=== PATIENT | male | born 1950 ===

== ENCOUNTER 2020-01-28 08:38 | Inpatient (IN) | payer MEDICARE ==
[~2020-01-28] VITALS: Ht 175.3 cm; Wt 91.4 kg
[~2020-01-28 08:38] MED LIST: ALPR.25; Aspirin EC81 MG PO; CELE200; HYDACE10B; METO100ER; MULVITA PO; OLME20; OMEP20ER
[2020-01-28 09:21] LABS: BASOPHILS ABSOLUTE AUTO 0.04 K/mm3 (0.00-0.23); BASOPHILS PERCENT AUTO 0 % (0-2); EOSINOPHILS ABSOLUTE AUTO 0.13 K/mm3 (0.00-0.68); EOSINOPHILS PERCENT AUTO 1 % (0-6); Hematocrit 44.6 % (37.0-53.0); Hemoglobin 15.3 g/dL (13.5-17.5); IMMATURE GRAN ABSOLUTE AUTO 0.03 K/mm3 (0.00-0.10); IMMATURE GRAN PERCENT AUTO 0 % (0-1); LYMPHOCYTES ABSOLUTE AUTO 1.81 K/mm3 (0.84-5.20); LYMPHOCYTES PERCENT AUTO 14 % (21-46); MONOCYTES PERCENT AUTO 5 % (4-13); Mean Corpuscular HGB 32.3 pg (26.0-34.0); Mean Corpuscular HGB Conc 34.3 g/dL (31.5-36.5); Mean Corpuscular Volume 94 fL (80-100); Mean Platelet Volume 9.7 fL (9.1-12.4); NEUTROPHILS ABSOLUTE AUTO 10.17 K/mm3 (1.96-9.15); NEUTROPHILS PERCENT AUTO 80 % (41-73); Platelet Count 392 K/mm3 (150-400); RDW Coefficient Variation 13.8 % (11.7-14.2); RDW Standard Deviation 48.3 fL (35.1-46.3); Red Blood Cell Count 4.74 M/mm3 (4.30-5.90); White Blood Cell Count 12.78 K/mm3 (4.00-11.30)
[2020-01-28 09:25] LABS: Calcium, Ionized (POC) 1.14 mmol/L (1.10-1.46); Chloride (POC) 104 mmol/L (98-108); Creatinine (POC) 0.8 mg/dL (0.8-1.3); Glucose (ISTAT POC) 139 mg/dL (70-99); Hemoglobin (POC) 14.6 g/dL (13.5-17.5); Potassium (POC) 3.8 mmol/L (3.5-5.5); Sodium (POC) 139 mmol/L (135-148); Total CO2 (POC) 25 mmol/L (21-32)
[2020-01-28 09:35] LABS: International Normalized Ratio 0.95; Prothrombin Time Results 10.2 Sec (9.7-11.5)
[2020-01-28 09:41] LABS: Alanine Aminotransfer (ALT/SGP 41 U/L (12-78); Alk Phos 137 U/L (50-136); Anion Gap 6 mmol/L (6-16); Aspartate Aminotrans (AST/SGOT 32 U/L (12-37); Bilirubin, Total 0.5 mg/dL (0.1-1.0); Blood Urea Nitrogen 12 mg/dL (8-24); Bun/Creatinine Ratio 15.9 (12.0-20.0); CO2, Blood 26 mmol/L (21-32); Calcium, Blood 9.9 mg/dL (8.5-10.1); Chloride, Blood 108 mmol/L (98-108); Creatinine, Blood 0.76 mg/dL (0.60-1.20); Ethanol (Alcohol), Blood, Med <3 mg/dL; Globulin, Blood 4.2 g/dL (2.2-4.0); Glomerular Filtration Rate >60 (60-); Glucose, Blood 138 mg/dL (70-99); Potassium, Blood 3.9 mmol/L (3.5-5.5); Sodium, Blood 140 mmol/L (136-145); Total Protein, Blood 8.2 g/dL (6.4-8.2)
[2020-01-28] MEDS ORDERED: CENTRUM SILVER1 EAC2 PO (09:56)
[2020-01-28] MEDS ORDERED: LEVSOD100 PO (09:56)
[2020-01-28] MEDS ORDERED: Pravachol40 MG PO (09:57)
[2020-01-28] MEDS ORDERED: AMLO10 PO (09:57)
[2020-01-28] MEDS ORDERED: CITA20 PO (09:58)
[2020-01-28] MEDS ORDERED: NAPR500 PO (09:58)
[2020-01-28] MEDS ORDERED: ZYRTEC10 M2 PO (09:59)
[2020-01-28] MEDS ORDERED: VERA180ERB PO (09:59)
[2020-01-28] MEDS ORDERED: LANS15EC PO (10:00)
--- NOTE | 2020-01-28 15:56 | NUR ---
Echocardiogram using 9.0ml of agitated saline contrast performed by Lo Wilson under my supervision.
--- NOTE | 2020-01-28 18:25 | NUR ---
PT SETTLED INTO ROOM AOX3 AND SEEMS COOPERATIVE. PT DOES SEEM IMPULSIVE AFTER HIS DAUGHTER LEFT AND HAD TO BE REDIRECTED TO KEEP LEGS IN BED. PT IS DOING A LOT OF MOVING AROUND WITH HIS LEGS AND BODY. BED ALARM IS INPLACE WILL CONTINUE TO MONITOR. BED AT LOWEST POSTION.
[2020-01-28 19:00] LABS: Source, Urine Clean Catch
[2020-01-28 19:03] LABS: Appearance, Urine Clear (Clear); Bilirubin, Urine Neg (Neg); Blood, Urine 1+ (Neg); Color, Urine Yellow (P-Yellow); Glucose Qualitative, Urine Neg (Neg); Ketones, Urine Neg (Neg); Leukocyte Esterase, Urine Neg (Neg); Nitrite, Urine Pos (Neg); Protein, Urine 3+ (Neg); Urobilinogen, Urine NORM (Normal)
[2020-01-28 19:09] LABS: Squamous Epithelial Cells Not Seen /hpf (Few); White Blood Cells, Urine 0-2 /hpf (0-5)
[2020-01-28 19:10] LABS: Bacteria Few /hpf
[2020-01-29 05:21] LABS: Hematocrit 41.4 % (37.0-53.0); Hemoglobin 14.2 g/dL (13.5-17.5); Mean Corpuscular HGB 32.3 pg (26.0-34.0); Mean Corpuscular HGB Conc 34.3 g/dL (31.5-36.5); Mean Corpuscular Volume 94 fL (80-100); Mean Platelet Volume 9.5 fL (9.1-12.4); Platelet Count 362 K/mm3 (150-400); RDW Coefficient Variation 13.8 % (11.7-14.2); RDW Standard Deviation 48.2 fL (35.1-46.3); Red Blood Cell Count 4.39 M/mm3 (4.30-5.90); White Blood Cell Count 11.43 K/mm3 (4.00-11.30)
[2020-01-29 05:43] LABS: Anion Gap 6 mmol/L (6-16); Blood Urea Nitrogen 7 mg/dL (8-24); Bun/Creatinine Ratio 10.3 (12.0-20.0); CO2, Blood 26 mmol/L (21-32); Calcium, Blood 9.3 mg/dL (8.5-10.1); Chloride, Blood 109 mmol/L (98-108); Creatinine, Blood 0.68 mg/dL (0.60-1.20); Glomerular Filtration Rate >60 (60-); Glucose, Blood 119 mg/dL (70-99); Potassium, Blood 3.3 mmol/L (3.5-5.5); Sodium, Blood 141 mmol/L (136-145)
--- NOTE | 2020-01-29 06:37 | NUR ---
SHIFT SUMMARY PATIENT HAD SOME DIFFICULTY FOLLOWING DIRECTIONS AND SEEMED CONFUSED AT TIMES. HE IS SLIGHTLY WEAKER ON HIS RIGHT SIDE, BUT MUSCLE STRENGTH SEEMS TO BE WITHIN NORMAL RANGE. HE WAS OCCASIONALLY IMPULSIVE AND FIDGETED A LOT IN BED WHEN AWAKE. HE WAS ABLE TO GET A GOOD NIGHT'S SLEEP. IV PATENT AND FLUSHED. BED IN LOWEST POSITION WITH WHEELS LOCKED AND ALARM ON. CALL LIGHT WITHIN REACH. REPORT GIVEN TO ONCOMING RN.
[2020-01-29 08:43] LABS: CHOL/HDL RATIO 2.5; Cholesterol 178 mg/dL (50-200); HDL Cholesterol 72 mg/dL (>39); LDL/HDL RATIO 1.1; Low Density Lipoprotein Chol 78 mg/dL (0-110); Triglycerides 142 mg/dL (30-160); Very Low Density Lipoprot Chol 28 mg/dL (6-32)
[2020-01-29 10:30] LABS: Influenza A, PCR Negative (NEGATIVE); Influenza B, PCR Negative (NEGATIVE); Resp Syncytial Virus, PCR Negative (NEGATIVE); SARS-Cov-2 (COVID-19) PCR, MMC Negative (NEGATIVE)
--- NOTE | 2020-01-29 17:40 | NUR ---
PT IS AOX3 AND COOPERATIVE OF CARE. PT DOES HAVE SOME MINOR CONFUSION, BUT DOES FAIRLY WELL LETTING HIS NEEDS BE KNOWN. PT IS HAVING MILD TREMORS DUE TO ALCOHOL WITHDRAWL AT THIS TIME. PT WAS REQUESTING NICOTINE GUM, BUT DUE TO NPO STATUS PT RECIEVED A NICOTINE PATCH PER DR ALAMO. PT IS RESTING IN BED AT THIS TIME WITH BED ALARM IN PLACE NO DISTRESS NOTED AT THIS TIME.
--- NOTE | 2020-01-30 03:28 | NUR ---
PATIENT IS PLEASANT AND COOPERATIVE WITH STAFF. NO SUMPTOMS OF ETOH W/D. DENIES PAIN AND DISCOMFORT. BP REMAINS ELEVATED HOWEVER THEY APPEAR TO BE TRENDING DOWNWARDS. PATIENT CALLS APPROPRIATELY FOR STAFF ASSIST NEEDED. NO ACUTE CHANGES TO REPORT OF AT THIS TIME. WILL CONTINUE TO MONITOR AND PROVIDE CARE NEEDED.
[2020-01-30 05:13] LABS: BASOPHILS ABSOLUTE AUTO 0.03 K/mm3 (0.00-0.23); BASOPHILS PERCENT AUTO 0 % (0-2); EOSINOPHILS ABSOLUTE AUTO 0.17 K/mm3 (0.00-0.68); EOSINOPHILS PERCENT AUTO 2 % (0-6); Hemoglobin 14.3 g/dL (13.5-17.5); IMMATURE GRAN ABSOLUTE AUTO 0.06 K/mm3 (0.00-0.10); IMMATURE GRAN PERCENT AUTO 1 % (0-1); LYMPHOCYTES ABSOLUTE AUTO 1.82 K/mm3 (0.84-5.20); LYMPHOCYTES PERCENT AUTO 18 % (21-46); MONOCYTES ABSOLUTE AUTO 0.83 K/mm3 (0.16-1.47); MONOCYTES PERCENT AUTO 8 % (4-13); Mean Corpuscular HGB 31.2 pg (26.0-34.0); Mean Corpuscular HGB Conc 33.3 g/dL (31.5-36.5); Mean Corpuscular Volume 94 fL (80-100); Mean Platelet Volume 9.6 fL (9.1-12.4); NEUTROPHILS ABSOLUTE AUTO 7.14 K/mm3 (1.96-9.15); NEUTROPHILS PERCENT AUTO 71 % (41-73); Platelet Count 351 K/mm3 (150-400); RDW Coefficient Variation 13.8 % (11.7-14.2); RDW Standard Deviation 47.8 fL (35.1-46.3); Red Blood Cell Count 4.58 M/mm3 (4.30-5.90); White Blood Cell Count 10.05 K/mm3 (4.00-11.30)
[2020-01-30 05:26] LABS: Albumin, Blood 3.2 g/dL (3.4-5.0); Anion Gap 7 mmol/L (6-16); Blood Urea Nitrogen 8 mg/dL (8-24); Bun/Creatinine Ratio 12.6 (12.0-20.0); CO2, Blood 26 mmol/L (21-32); Chloride, Blood 108 mmol/L (98-108); Creatinine, Blood 0.64 mg/dL (0.60-1.20); Glomerular Filtration Rate >60 (60-); Glucose, Blood 113 mg/dL (70-99); Phosphorus, Blood 3.1 mg/dL (2.5-4.9); Potassium, Blood 3.2 mmol/L (3.5-5.5); Sodium, Blood 141 mmol/L (136-145)
--- NOTE | 2020-01-30 10:14 | NUR ---
DR NOTIFIED ABOUT ELAVATED BP AND PT NOW PUREE DIET AND DR WILL CHANGE MEDICATIONS ORALLY. FLUID DC PER DR ORDER.
--- NOTE | 2020-01-30 15:00 | NUR ---
SWALLOW CONCERNS PT WAS ABLE TO TOLERATE PUREE DIET; HOWEVER WHEN I TRIED TO ADMINISTER THE PILL; PT WAS NOT ABLE TO TOLERATE A PILL EVEN AFTER CUTTING IT IN HALF.
--- NOTE | 2020-01-30 16:01 | NUR ---
PT DAUGHTER TOLD ME THAT SHE IS ABLE TO MANAGE THE PT CARE AT HOME. SHE IS THE ONE WHO MANAGES EVERYTHING IN TERMS OF CARE FOR THIS PT. DAUGHTER ALSO STATED THAT SHE DOES NOT THINK THAT HE SHOULD STAY 2 MORE NIGHTS HERE AT THE HOSPITAL BECAUSE SHE CAN TELL THAT HE'S DOING BETTER. PT DAUGHTER EDUCATED ABOUT WHY THE PT IS STAYING THE NIGHT.
--- NOTE | 2020-01-30 17:02 | NUR ---
SHIFT SUMMARY PT CONFUSED AT TIMES AND SLOW TO RESPOND. CALLS APPROPRIATELY. MILD LEFT SIDED DEFICIT; PT USES [place]T 2P ASSIST STAND PIVOT TRANSFER FROM BED TO RECLINER. PT DENIES PAIN AND SOB. PT STATED THAT HE WANTED TO GO HOME WITH HIS DAUGHTER. BP ELEVATED; WILL START ON BP MEDICATION TOMORROW AND PRN BP MEDS NEEDED. PT ON TELE NSR @80S. BED ALARM IS ON AND CALL LIGHT WITHIN REACH
--- NOTE | 2020-01-31 04:51 | NUR ---
SHIFT SUMMARY PT ALERT, CONFUSED AT TIMES, SLOW TO RESPOND. UP TO CHAIR WITH 2X ASSIST. ATTENS IN PLACE AND CHANGED PRN OVERNIGHT. NO SIGNS OF ETOH WITHDRAWAL OVERNIGHT. PT HAS DENIED PAIN OVERNIGHT. L HAND [employer]NA[employer] ONLY SLIGHTLY WEAKER THAN R HAND. PT HAS BEEN RESTING IN BED WITH CALL LIGHT IN REACH.
[2020-01-31] MEDS ORDERED: CLOP75 PO (10:44)
[2020-01-31] MEDS ORDERED: Nicoderm Cq1 EAC1 TOP (10:45)
--- NOTE | 2020-01-31 11:29 | NUR ---
[address] ABOUT THE ELEVATED BP; NO ORDER AT THIS TIME. PT WILL BE DC WITH BP HOME MEDICATIONS
--- NOTE | 2020-01-31 12:44 | NUR ---
DISCHARGE PT DISCHARGE TO HOME WITH DAUGHTER VIA WC. IV DC'D. PT EDUCATED ABOUT DISEASE PROCESS AND PREVENTION. CALLED DAUGHTER TO EXPLAIN ABOUT THE DISCHARGE PAPER ADN EDUCATIONS WITH MEDICATIONS THAT WAS FAXED TO [facility]. PT STATED HE DOES NOT THINK HE NEEDS ANY HH SINCE HIS DAUGHTER IS ABLE TO CARE FOR HIM. 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 EDUCATED THE PT ABOUT THE ALCOHOL PROBLEMS. PT STATED THAT HE WILL STOP DRINKING ALCOHOL; HOWEVER HE STATED THAT HE WON'T STOP SMOKING.
== END 2020-01-31 12:25 | disposition home or self-care (01) | DRG 65 ==
LOC: ER 08:38 → ERHOLD 12:29 → MEDS 12:29
PROVIDERS: Emergency Medicine; Nurse Practitioner Acute Care; ADMIT Family Medicine
DX: I63.211 Cerebral infarction due to unspecified occlusion or stenosis of right vertebral artery (principal); F10.239 Alcohol dependence with withdrawal, unspecified; N39.0 Urinary tract infection, site not specified; E87.6 Hypokalemia; I10 Essential (primary) hypertension; Z20.828 Contact with and (suspected) exposure to other viral communicable diseases; E03.9 Hypothyroidism, unspecified; K21.9 Gastro-esophageal reflux disease without esophagitis; F32.9 Major depressive disorder, single episode, unspecified; E78.5 Hyperlipidemia, unspecified; R47.81 Slurred speech; R29.810 Facial weakness; G83.14 Monoplegia of lower limb affecting left nondominant side; F17.210 Nicotine dependence, cigarettes, uncomplicated; E66.9 Obesity, unspecified; Z68.31 Body mass index [BMI] 31.0-31.9, adult
CPT/HCPCS: 0241U; 36415; 70450; 70496; 70498; 70551; 71045; 80047; 80048; 80053; 80061; 80069; 81001; 82947; 83735; 85014; 85025; 85027; 85610; 87086; 92526; 92610; 93005; 93010; 93306; 96361; 96374; 97110; 97116; 97162; 97166; 97535; 99285-25; A9270; A9270-GY; C9113; G0480; J1650; J1956; J3411; J3475; J3480; J7030; J7042; J7050; Q9967

== ENCOUNTER 2021-02-02 09:50 | Day surgery (SDC) | payer MEDICARE ==
[~2021-02-02 09:50] MED LIST changes: +AMLO10 PO; +CENTRUM SILVER1 EAC2 PO; +CITA20 PO; +CLOP75 PO; +LANS15EC PO; +LEVSOD100 PO; +NAPR500 PO; +Nicoderm Cq1 EAC1 TOP; +Pravachol40 MG PO; +VERA180ERB PO; +ZYRTEC10 M2 PO
[2021-02-03] MEDS ORDERED: NAPR500 PO (15:40)
[2021-02-03] MEDS ORDERED: METF500 PO (15:40)
[2021-02-03] MEDS ORDERED: DOCU100 PO (15:42)
[2021-02-03] MEDS ORDERED: ONDA4 PO (17:52)
[2021-02-04] MEDS ORDERED: DEXA6 PO (01:32)
== END 2021-02-02 16:15 | disposition home or self-care (01) ==
LOC: ATC 09:50
DX: U07.1 COVID-19 (principal)
CPT/HCPCS: 96365; Q0243